=== PATIENT | female | born 1960 ===

== ENCOUNTER 2020-01-08 09:06 | Outpatient (CLI) | payer OTHER ==
[~2020-01-08 09:06] MED LIST: ADULT ASPIRIN81 MG; PREMARIN0.45 MG
[2020-01-14] MEDS ORDERED: PEPCID AC20 MG PO (15:35)
[2020-01-14] MEDS ORDERED: ORAL ANALGESIC12 ML MM (15:36)
== END 2020-01-08 15:30 | disposition home or self-care (01) ==
LOC: OFIC 805 09:06
DX: R07.0 Pain in throat (principal); R22.1 Localized swelling, mass and lump, neck

== ENCOUNTER → 2020-03-03 | Outpatient (CLI) | payer OTHER ==
[~2020-03-03] MED LIST changes: +ORAL ANALGESIC12 ML MM; +PEPCID AC20 MG PO
== END | disposition home or self-care (01) ==
LOC: OFIC 805 10:24
DX: R07.0 Pain in throat (principal); R22.1 Localized swelling, mass and lump, neck; H81.13 Benign paroxysmal vertigo, bilateral; H61.23 Impacted cerumen, bilateral

== ENCOUNTER 2020-03-15 09:38 | Outpatient (CLI) | payer OTHER | END 2020-03-15 09:42 | disposition home or self-care (01) | LOC: SONOGRAMA 09:38 | PROVIDERS: ATTEND Pathology Anatomic Pathology | DX: R22.1 Localized swelling, mass and lump, neck (principal) ==

== ENCOUNTER 2020-03-29 09:40 | Outpatient (CLI) | payer OTHER ==
[~2020-03-29] VITALS: Ht 152.4 cm; Wt 65.3 kg
== END 2020-03-29 13:11 | disposition home or self-care (01) ==
LOC: OFIC 805 09:40
PROVIDERS: ATTEND Otolaryngology
DX: H81.13 Benign paroxysmal vertigo, bilateral (principal); R22.1 Localized swelling, mass and lump, neck; R07.0 Pain in throat

== ENCOUNTER → 2020-09-11 | Emergency (ER) | payer OTHER ==
[~2020-09-11] VITALS: Ht 154.9 cm; Wt 64.4 kg
[~2020-09-11] MED LIST changes: +KETO10TA2 PO; +ORPHENADRINE C100 MG PO; +TRICOR48 MG PO
== END | disposition home or self-care (01) ==
LOC: ER 11:06
DX: M50.33 Other cervical disc degeneration, cervicothoracic region (principal); M62.830 Muscle spasm of back